=== PATIENT | female | born 1965 | race Caucasian/White ===

== ENCOUNTER 2023-12-21 01:15 | Emergency (ER) | payer MEDICARE, OTHER, SELFPAY ==
[2023-12-21] VITALS (8 sets, daily range): BP systolic 123–185; BP diastolic 63–103; BMI 44.4
[2023-12-21 01:52] LABS: % Basophils 0.9 % (0-2); % Eosinophils 4.6 % (0-6); % Immature Granulocytes 0.1 % (0-0.5); % Lymphocytes 31.4 % (20.5-51.1); % Monocytes 7.7 % (1.7-9.3); % Neutrophils 55.3 % (42.2-75.2); Absolute Basophils 0.1 10^3/uL (0-0.2); Absolute Eosinophils 0.3 10^3/uL (0-0.7); Absolute Lymphocytes 2.2 10^3/uL (1.2-3.4); Absolute Monocytes 0.5 10^3/uL (0.1-0.6); Absolute Neutrophils 3.9 10^3/uL (1.4-6.5); Hematocrit 34.6 % (37.0-47.0); Hemoglobin 11.2 g/dL (12.0-16.0); Mean Corp Hgb Conc. 32.4 g/dL (33.0-37.0); Mean Corpuscular Hgb 28.1 pg (27.0-31.0); Mean Corpuscular Volume 86.9 fL (81.0-99.0); Mean Platelet Volume 9.7 fL (7.4-10.4); Nucleated Red Blood Cells % 0 %; Platelet Count 360 10^3/uL (130-400); Red Blood Cell Count 3.98 10^6/uL (4.20-5.40); Red Cell Dist. Width 13.8 % (11.5-14.5)
[2023-12-21 02:20] LABS: ALT (SGPT) 16 U/L (0-35); AST (SGOT) 27 U/L (14-36); Albumin 4.3 g/dl (3.5-5.0); Alkaline Phosphatase 120 U/L (38-126); Blood Urea Nitrogen 13 mg/dl (7-17); Calcium 9.8 mg/dl (8.4-10.2); Carbon Dioxide 26 mmol/L (22-30); Chloride 102 mmol/L (98-107); Glucose 102 mg/dl (70-99); NT-proBNP 130 pg/ml; Potassium 3.8 mmol/L (3.5-5.1); Sodium 139 mmol/L (135-145); Total Bilirubin 0.3 mg/dl (0.2-1.3); Total Protein 7.6 g/dl (6.3-8.2); Troponin I < 0.012 ng/ml; eGFR > 60.00
--- NOTE | 2023-12-21 06:31 | ED.GENMED ---
History of Present Illness
General
Chief Complaint: Breathing Problem
Source: patient
Exam Limitations: none
Time Seen by Provider: 12/21/23 06:31
Travel History
Have you had any contact with someone who has COVID-19?: No
Do you have any symptoms of coronavirus? Fever > 100 degrees, chills, cough, shortness of breath, sore throat, loss of taste or smell, muscle aches, or headache?: No
History of Present Illness
History of Present Illness:
58-year-old female complaining of shortness of breath. Has anxiety. The last 2 nights she has had difficulty sleeping secondary to being upset. Last night she became more upset than short of breath with some tingling in her left arm. She has had
a stable weight. No chest pain no pleuritic pain no fever
Past History
Past History
ED Past Medical History: CHF, HTN, Hypercholesterolemia, Hypothyroidism, Psychiatric (Bipolar disorder) and Other (Obesity, chronic dental caries, facial celllulitis, Gait Disorder, Hernia,); Negative Asthma or NIDDM
ED Past Surgical History: Cholecystectomy, (X 2), Gynecological (Oophorectomy with tube right sided) and Other (Gastric bypass)
Social History
Tobacco: Non-smoker
Alcohol: None
Personal:
Living: with family (Dad)
Employment: Not employed
Review of Systems
Review of Systems
All Other Systems: Not applicable
Constitutional: Denies fever
Respiratory: Denies cough
Cardiac: Denies chest pain or syncope
Phy Exam
Physical Exam
Physical Exam:
GENERAL: Alert and oriented in no apparent distress
EYE: Orbits normal.
NECK: Supple, no thyroid palpable
ENT: Pharynx without erythema
CARDIAC: Regular rate and rhythm without any obvious murmurs.
LUNGS: Clear breath sounds,normal
ABDOMEN: Soft, without focal tenderness or distention. Elevated BMI
NEUROLOGICAL: Alert and oriented , grossly non-focal
SKIN: Warm and dry, no rash or lesion, no discoloration, skin intact.
MUSCULOSKELETAL: Minimal bilateral lower extremity pitting edema left greater than right
PSYCH: Normal and appropriate interaction.
Scores
Heart Failure Risk
Heart Failure Risk Score: Not Applicable
Course
Orders/Labs/Results
Orders:
Orders
12/21/23 01:36
Electrocardiogram (*1) Urgent
Reason for Study: Chest Pain
EKG- Treatment ONCE
12/21/23 01:45
BNP [NT-proBNP] Urgent
Complete Blood Count/With Diff Urgent
Comprehensive Metabolic Panel Urgent
Troponin I Urgent
12/21/23 06:39
CXR2 [CR Chest - 2 Views ] Urgent
Comment:
Reason For Exam: Short of breath
12/21/23 06:42
EKG- Treatment ONCE
12/21/23 08:23
D-Dimer Urgent
Troponin I Urgent
12/21/23 09:15
EKG [Electrocardiogram (*1)] Urgent
Reason for Study: Other
Other Reason for Exam: repeat
12/21/23 09:17
EKG- Treatment ONCE
12/21/23 09:41
Oxycodone [Roxicodone] 15 mg PO NOW STA
Abnormal Lab Results
12/21/23 12/21/23
01:45 08:23
RBC 3.98 L 10^6/uL
(4.20-5.40)
Hgb 11.2 L g/dL
(12.0-16.0)
Hct 34.6 L %
(37.0-47.0)
MCHC 32.4 L g/dL
(33.0-37.0)
D-Dimer 0.61 H ug/mlFEU
(0.00-0.50)
Glucose 102 H mg/dl
(70-99)
12/21/23 01:45
12/21/23 01:45
Vital Signs
Initial and Last Documented VS:
Initial Vital Signs
Temp Pulse Resp BP Pulse Ox
98.4 F 82 16 185/103 100
12/21/23 01:34 12/21/23 01:34 12/21/23 01:34 12/21/23 01:34 12/21/23 01:34
Last Documented Vital Signs
Temp Pulse Resp BP Pulse Ox
98.4 F 77 32 129/63 99
12/21/23 01:34 12/21/23 09:45 12/21/23 09:45 12/21/23 09:30 12/21/23 09:30
MDM/Problems Addressed
Differential Diagnosis Includes:
Shortness of breath essentially or mostly resolved. Highly doubt primary cardiac issue. Troponin is normal EKG is normal. Lungs are clear. proBNP is normal. Weight is stable. Highly doubt CHF. Unlikely to be pulmonary emboli but needs to be
considered. Low clinical suspicion. D-dimer pending.
*Pulse Oximetry
Patient hypoxic: no
*EKG
Interpreted by ED Provider?: Yes
Interpretation: normal
Comparison EKG: no changes
Heart Rate: 81
Rate: normal
Rhythm: sinus
[place]: normal axis
Interval: normal interval
QRS Pattern: normal QRS
Ischemia: no ischemia
*Critical Care Note
Total Time (30-74mins, 75-104mins- exclusive of procedures): Not Applicable
Data Reviewed
Review of Other/Old Records Reveals: Labs, Records, Radiology Studies and Testing
Update Note
Update Note:
Repeat EKG stable. Normal sinus rhythm no acute changes. Repeat troponin stable. No serious explanation for patient's transient shortness of breath. Feels well now. D-dimer age-adjusted top normal. Very low suspicion for pulmonary emboli.
Stable for discharge to follow-up
ED Attending Note
-
Portions of this chart may have been created with voice recognition software.� Occasional wrong word or��sound alike� substitutions may have occurred due to the inherent limitations of voice recognition software.
Discharge Plan
Departure
Patient Disposition: Home (Routine Discharge)
Date of Disposition: 12/21/23
Time of Disposition: 09:39
Patient with high blood pressure during this ER visit?: Yes
Discharge Problem:
Transient dyspnea
Instructions: Shortness of Breath (Dyspnea) (DC), BLOOD PRESSURE
Prescriptions:
No Action
citalopram 20 MG tablet
40 mg PO DAILY
lamotrigine 100 MG tablet
200 mg PO HS
cyclobenzaprine 10 MG tablet
10 mg PO BIDPRN PRN (Reason: muscle spasm)
levothyroxine 100 MCG tablet
100 mcg PO FR@0700
lithium carbonate 300 MG capsule
300 mg PO BID
bupropion HCl 300 MG tablet extended release 24 hr
300 mg PO DAILY
valsartan [Diovan] 160 MG capsule
160 mg PO DAILY
cyanocobalamin (vitamin B-12) 1,000 MCG tablet
1,000 mcg PO DAILY
oxycodone 15 MG tablet
15 mg PO Q4HPRN PRN (Reason: breakthrough pain)
Patient Comments:
12/09/2021: last filled 11/29/21, 120 tabs for 24 days from [id number]
lorazepam 0.5 MG tablet
0.5 mg PO DAILYPRN PRN (Reason: anxiety)
Patient Comments:
12/09/2021: last filled 11/16/21, 30 tabs for 30 days from [id number]
morphine 15 MG tablet extended release
15 mg PO Q8H
Patient Comments:
12/09/2021: last filled 12/05/21, 90 tabs for 30 days from [id number]
albuterol sulfate 1 PUFF HFA aerosol inhaler
2 puff inhalation R Q4HPRN PRN (Reason: sob/wheezing)
sennosides [senna] 1 TABLET tablet
2 tab PO BID 0RF
polyethylene glycol 3350 17 GRAMS powder in packet
17 grams PO DAILY 0RF
docusate sodium 100 MG capsule
100 mg PO BID 0RF
levothyroxine [Synthroid] 88 MCG tablet
88 mcg PO DAILY Qty: 30 0RF
Rx Instructions:
daily except for Fridays
furosemide 40 MG tablet
40 mg PO DAILY Qty: 30 0RF
albuterol sulfate 2.5 mg/0.5 mL solution for nebulization
5 mg inhalation Q6H PRN (Reason: shortness of breath or wheezing) Qty: 30 0RF
prednisone 20 mg tablet
40 mg PO DAILY Qty: 8 0RF
Referrals:
Paul Melgar DO [Family Provider] - Follow up in 2-3 days
Interventions
Interventions:
*Risk Screen - Suicide Last Done: 12/21/23 01:34
*General Assessment Last Done: 12/21/23 06:32
*Neglect/Abuse Screening Last Done: 12/21/23 01:34
ED- Fall Risk Assessment Last Done: 12/21/23 06:32
*ED COVID-19 Vaccine History Last Done: 12/21/23 01:34
*Nursing Disposition Last Done: 12/21/23 10:27
ED- Cardiac Assessment Last Done: 12/21/23 06:32
ED- Pulmonary Assessment Last Done: 12/21/23 06:32
Discharge Date and Time
Discharge Date/Time: 12/21/23 10:28
Print Language: JAPANESE
[2023-12-21 08:51] LABS: D-Dimer 0.61 ug/mlFEU (0.00-0.50)
[2023-12-21 09:07] LABS: Troponin I < 0.012 ng/ml
[2023-12-21] MEDS: ROXICODONE 15 MG PO (10:03)
== END 2023-12-21 10:28 | disposition home or self-care (01) ==
LOC: EMR 01:15
PROVIDERS: Emergency Medicine; EMERGENCY PHYSICIAN Emergency Medicine; FAMILY PHYSICIAN Internal Medicine
DX: R06.00 Dyspnea, unspecified (principal); R06.02 Shortness of breath; R20.2 Paresthesia of skin; I10 Essential (primary) hypertension
CPT/HCPCS: 99285; 71046; 80053; 83880; 84484; 85025; 85379; 93005

== ENCOUNTER → 2024-05-13 08:08 | Outpatient (REF) | payer MEDICARE, OTHER, SELFPAY ==
[2024-05-13 09:33] LABS: Hematocrit 34.8 % (37.0-47.0); Hemoglobin 11.1 g/dL (12.0-16.0); Mean Corp Hgb Conc. 31.9 g/dL (33.0-37.0); Mean Corpuscular Hgb 27.8 pg (27.0-31.0); Mean Platelet Volume 9.7 fL (7.4-10.4); Platelet Count 354 10^3/uL (130-400); Red Cell Dist. Width 14.1 % (11.5-14.5); White Blood Cell Count 5.8 10^3/uL (4.8-10.8)
[2024-05-13 09:57] LABS: ALT (SGPT) 21 U/L (0-35); AST (SGOT) 39 U/L (14-36); Albumin 4.2 g/dl (3.5-5.0); Alkaline Phosphatase 113 U/L (38-126); Blood Urea Nitrogen 10 mg/dl (7-17); Calcium 9.8 mg/dl (8.4-10.2); Carbon Dioxide 25 mmol/L (22-30); Chloride 105 mmol/L (98-107); Direct Bilirubin 0.2 mg/dl (0.0-0.4); Glucose 103 mg/dl (70-99); HDL Cholesterol 55 mg/dl; LDL Cholesterol, Calculated 84 mg/dl; Lithium 0.3 mmol/L (0.6-1.2); Potassium 4.4 mmol/L (3.5-5.1); Sodium 144 mmol/L (135-145); Total Bilirubin 0.4 mg/dl (0.2-1.3); Total Cholesterol 163 mg/dl (50-199); Total Protein 7.2 g/dl (6.3-8.2); Triglyceride 122 mg/dl (10-149); Very Low Density Lipoprotein 24 mg/dl (0-30); eGFR > 60.00
[2024-05-13 10:23] LABS: TSH 8.56 uIU/ml (0.47-4.68)
== END ==
LOC: REG 08:08
PROVIDERS: ATTENDING PHYSICIAN Nurse Practitioner Adult Health; FAMILY PHYSICIAN Internal Medicine
DX: F31.4 Bipolar disorder, current episode depressed, severe, without psychotic features (principal); Z79.899 Other long term (current) drug therapy
CPT/HCPCS: 36415; 80053; 80061; 80178; 82248; 84443; 85027

== ENCOUNTER 2024-05-30 11:57 | Emergency (ER) | payer MEDICARE, OTHER, SELFPAY ==
[2024-05-30 11:58] VITALS: BP 125/59
--- NOTE | 2024-05-30 12:27 | ED.GENMED ---
History of Present Illness
General
Chief Complaint: Cough
Source: patient
Exam Limitations: none
Time Seen by Provider: 05/30/24 12:16
Nursing documentation reviewed up to this point in time: agreed with
History of Present Illness
History of Present Illness:
59-year-old female with past medical history of CHF, hypertension, hypothyroidism presents emergency department today with concerns of cough and shortness of breath. Patient states that this started yesterday. Patient states that this all started
with a cough and she had a hard time catching her breath as well. She notes that shortness of breath is worse with exertion. Patient states that she had hard time sleeping last night because of the cough. Patient denies any chest pain. Patient
notes a sore throat as well. Patient follows with Dr. Gamble for cardiology. Patient denies any swelling in her legs or recent weight gain. Patient takes 20 mg of Lasix daily. Patient denies any sick contacts feet. Patient denies any recent
long distance travel, any recent surgeries or immobilization. Of note, patient started antibiotic recently Keflex for infection of her skin on her abdomen. Patient denies any fevers or chills, any constipation or diarrhea. Patient denies any
abdominal pain.
Past History
Past History
ED Past Medical History: CHF, HTN, Hypercholesterolemia, Hypothyroidism, Psychiatric (Bipolar disorder) and Other (Obesity, chronic dental caries, facial celllulitis, Gait Disorder, Hernia,); Negative Asthma or NIDDM
ED Past Surgical History: Cholecystectomy, (X 2), Gynecological (Oophorectomy with tube right sided) and Other (Gastric bypass)
Social History
Tobacco: Non-smoker
Alcohol: None
Personal:
Living: with family (Dad)
Employment: Not employed
Review of Systems
Review of Systems
All Other Systems: ROS reviewed and negative except as documented in HPI and ROS
Phy Exam
Physical Exam
Physical Exam:
General: Patient is well appearing and in no acute distress; non-toxic
Skin: Warm and dry, no rashes or lesions
Head: Normocephalic, atraumatic
Eyes: Sclera non-icteric. EOMs intact.
Cardiac: Regular rate and rhythm, no murmurs
Peripheral Vascular: No lower extremity swelling or edema, no erythema
Pulm: Normal respiratory effort, rhonchi heard in lower lung bases bilaterally
Neuro: CN II-XII intact, no focal neurologic deficits.
Psychiatric: Appropriate mood and affect.
Course
Orders/Labs/Results
Orders:
Orders
05/30/24 12:05
COVID-19 Antigen Urgent
Source: Nasal Swab
Influenza A+B Rapid Molecular Urgent
PATI Source: Nasal Swab
Specimen Description:
05/30/24 12:37
IV Insert/Care/Rem.- Treatment PRN
Ipratropium/Albuterol Sulfate [Duoneb] 3 ml INH R NOW STA
Ondansetron Injectable [Zofran] 4 mg IV NOW STA
05/30/24 12:42
CR Chest - 2 Views Urgent
Comment:
Reason For Exam: sob
05/30/24 12:51
Complete Blood Count/With Diff Urgent
Comprehensive Metabolic Panel Urgent
NT-proBNP Urgent
Troponin I Urgent
Comment: ADD ON
05/30/24 13:52
Ketorolac [Toradol] 15 mg .ROUTE .STK-MED ONE
05/30/24 13:55
Ketorolac [Toradol] 15 mg IV NOW STA
05/30/24 13:59
Ipratropium/Albuterol Sulfate [Duoneb] 3 ml INH R NOW STA
05/30/24 14:01
D-Dimer Urgent
05/30/24 14:08
Add On- LAB Urgent
Tests Added?: troponin
05/30/24 14:09
Electrocardiogram (*1) Urgent
Reason for Study: Shortness of Breath
EKG- Treatment ONCE
Abnormal Lab Results
05/30/24
12:51
RBC 3.57 L 10^6/uL
(4.20-5.40)
Hgb 10.0 L g/dL
(12.0-16.0)
Hct 31.2 L %
(37.0-47.0)
MCHC 32.1 L g/dL
(33.0-37.0)
Monocytes % 9.8 H %
(1.7-9.3)
BUN 18 H mg/dl
(7-17)
Glucose 111 H mg/dl
(70-99)
AST 38 H U/L
(14-36)
05/30/24 12:51
05/30/24 12:51
Vital Signs
Initial and Last Documented VS:
Initial Vital Signs
Temp Pulse Resp BP Pulse Ox
97.9 F 103 20 125/59 95
05/30/24 11:58 05/30/24 11:58 05/30/24 11:58 05/30/24 11:58 05/30/24 11:58
Last Documented Vital Signs
Temp Pulse Resp BP Pulse Ox
97.9 F 91 19 99/62 98
05/30/24 11:58 05/30/24 16:10 05/30/24 16:10 05/30/24 16:00 05/30/24 16:10
MDM/Problems Addressed
Differential Diagnosis Includes:
Differentials include viral syndrome, COVID-19, pneumonia, acute bronchitis, heart failure exacerbation, PE
MDM/Problems Addressed:
59-year-old female with past medical history of CHF presents emergency department today with concerns of coughing and shortness of breath with exertion. Patient also started to develop some chest pain on the 1 side during the ER visit today.
Patient states that she has had this problem in the past and was attributed to bronchitis. Patient states that she has also had heart failure in the past and states that her shortness breath exertion similar to this time. On exam, patient is
well-appearing does have persistent coughing but no obvious signs of respiratory distress. She is not hypoxic. She is not febrile. I do hear some rhonchi in the lower bases bilaterally but no wheezing. I did obtain chest x-ray which did not show
any evidence of pneumonia. Her CBC and CMP are unremarkable. BNP is not elevated. Doubt heart failure exacerbation. Troponin and EKG normal, doubt ACS, suspect pain from persistent coughing episodes. Pain did improve with Toradol. Shortness
breath improved with DuoNeb treatment. Suspect viral bronchitis. DuoNeb treatment sent to the pharmacy as well as a short prednisone burst. Advised patient follow-up with PCP. Patient stable for discharge.
Chronic conditions affecting care:
CHF, HTN, anxiety disorder
*Radiology
Radiology exam reviewed: preliminary read by ED provider (no acute cardiopulmonary abnormality )
*Pulse Oximetry
Patient hypoxic: no
*EKG
Interpreted by ED Provider?: Yes
EKG Intrepretation Date: 05/30/24
Interpretation: normal
Heart Rate: 90
Rate: normal
Rhythm: sinus
[place]: normal axis
Ischemia: no ischemia
*Critical Care Note
Total Time (30-74mins, 75-104mins- exclusive of procedures): Not Applicable
Data Reviewed
Review of Other/Old Records Reveals: Records (Reviewed ER physician documentation from 12/21/2023, and 07/20/2022 where patient was seen for similar symptom)
Source: patient and records
Prescriptions/Medications Considered But Not Given:
Considered antibiotics however no clear pneumonia on chest x-ray, patient has had symptoms only in the past 24-hour
Further Testing Considered But Not Given:
Considered CT of the chest to evaluate for PE however patient is not tachycardic, not hypoxic, her symptoms have improved, her d dimer is in normal range
Patient Management
Escalation/DeEscalation of care consider admission/obs:
case reviewed with my attending
Update Note
Update Note:
14:00-- I was called into the room because patient feels like her shortness of breath has increased, she has mild right sided chest discomfort with inspiration. She repeatedly states, 'I cannot breath'.
ED Attending Note
-
Portions of this chart may have been created with voice recognition software.� Occasional wrong word or��sound alike� substitutions may have occurred due to the inherent limitations of voice recognition software.
Discharge Plan
Departure
Patient Disposition: Home (Routine Discharge)
Date of Disposition: 05/30/24
Time of Disposition: 16:04
Patient with high blood pressure during this ER visit?: Yes
Condition: Good
Discharge Problem:
Acute bronchitis
Instructions: Acute Bronchitis, Adult (DC), How to Use a Nebulizer, Adult, BLOOD PRESSURE
Prescriptions:
New
albuterol sulfate 2.5 mg/0.5 mL solution for nebulization
5 mg inhalation Q6H Qty: 30 0RF
prednisone 20 mg tablet
40 mg PO DAILY 4 Days Qty: 8 0RF
No Action
citalopram 20 MG tablet
40 mg PO DAILY
lamotrigine 100 MG tablet
200 mg PO HS
cyclobenzaprine 10 MG tablet
10 mg PO BIDPRN PRN (Reason: muscle spasm)
levothyroxine 100 MCG tablet
100 mcg PO FR@0700
lithium carbonate 300 MG capsule
300 mg PO BID
bupropion HCl 300 MG tablet extended release 24 hr
300 mg PO DAILY
valsartan [Diovan] 160 MG capsule
160 mg PO DAILY
cyanocobalamin (vitamin B-12) 1,000 MCG tablet
1,000 mcg PO DAILY
oxycodone 15 MG tablet
15 mg PO Q4HPRN PRN (Reason: breakthrough pain)
Patient Comments:
12/09/2021: last filled 11/29/21, 120 tabs for 24 days from [id number]
lorazepam 0.5 MG tablet
0.5 mg PO DAILYPRN PRN (Reason: anxiety)
Patient Comments:
12/09/2021: last filled 11/16/21, 30 tabs for 30 days from [id number]
morphine 15 MG tablet extended release
15 mg PO Q8H
Patient Comments:
12/09/2021: last filled 12/05/21, 90 tabs for 30 days from [id number]
albuterol sulfate 1 PUFF HFA aerosol inhaler
2 puff inhalation R Q4HPRN PRN (Reason: sob/wheezing)
sennosides [senna] 1 TABLET tablet
2 tab PO BID 0RF
polyethylene glycol 3350 17 GRAMS powder in packet
17 grams PO DAILY 0RF
docusate sodium 100 MG capsule
100 mg PO BID 0RF
levothyroxine [Synthroid] 88 MCG tablet
88 mcg PO DAILY Qty: 30 0RF
Rx Instructions:
daily except for Fridays
furosemide 40 MG tablet
40 mg PO DAILY Qty: 30 0RF
albuterol sulfate 2.5 mg/0.5 mL solution for nebulization
5 mg inhalation Q6H PRN (Reason: shortness of breath or wheezing) Qty: 30 0RF
prednisone 20 mg tablet
40 mg PO DAILY Qty: 8 0RF
Referrals:
Paul Melgar DO [Family Provider] -
Activity Restrictions/Additional Instructions:
Albuterol nebs have been sent to your pharmacy. You can use one treatment every 6 hours as needed for shortness of breath/coughing.
Please return emergency department should you experience acute worsening of your symptoms, lightheadedness, dizziness, fevers or chills, or any signs or symptoms concerning to you.
Please follow-up with your primary care provider.
Interventions
Interventions:
*Risk Screen - Suicide Last Done: 05/30/24 11:58
*General Assessment Last Done: 05/30/24 11:58
*Neglect/Abuse Screening Last Done: 05/30/24 11:58
ED- Fall Risk Assessment Last Done: 05/30/24 16:23
*ED COVID-19 Vaccine History Last Done: 05/30/24 12:56
*Nursing Disposition Last Done: 05/30/24 16:23
ED- Pulmonary Assessment Last Done: 05/30/24 12:49
Discharge Date and Time
Discharge Date/Time: 05/30/24 16:25
Print Language: POLISH
[2024-05-30 12:30] LABS: COVID-19 Antigen Negative (Negative)
[2024-05-30 13:05] LABS: % Basophils 0.8 % (0-2); % Eosinophils 2.7 % (0-6); % Immature Granulocytes 0.2 % (0-0.5); % Lymphocytes 39.1 % (20.5-51.1); % Monocytes 9.8 % (1.7-9.3); % Neutrophils 47.4 % (42.2-75.2); Absolute Eosinophils 0.1 10^3/uL (0-0.7); Absolute Lymphocytes 1.9 10^3/uL (1.2-3.4); Absolute Monocytes 0.5 10^3/uL (0.1-0.6); Absolute Neutrophils 2.3 10^3/uL (1.4-6.5); Hematocrit 31.2 % (37.0-47.0); Mean Corp Hgb Conc. 32.1 g/dL (33.0-37.0); Mean Corpuscular Volume 87.4 fL (81.0-99.0); Mean Platelet Volume 9.6 fL (7.4-10.4); Nucleated Red Blood Cells % 0 %; Platelet Count 274 10^3/uL (130-400); Red Blood Cell Count 3.57 10^6/uL (4.20-5.40); Red Cell Dist. Width 13.9 % (11.5-14.5); White Blood Cell Count 4.9 10^3/uL (4.8-10.8)
[2024-05-30 13:17] LABS: ALT (SGPT) 30 U/L (0-35); AST (SGOT) 38 U/L (14-36); Blood Urea Nitrogen 18 mg/dl (7-17); Calcium 9.2 mg/dl (8.4-10.2); Carbon Dioxide 23 mmol/L (22-30); Chloride 102 mmol/L (98-107); Glucose 111 mg/dl (70-99); Potassium 3.7 mmol/L (3.5-5.1); Sodium 139 mmol/L (135-145); Total Bilirubin 0.3 mg/dl (0.2-1.3); Total Protein 6.9 g/dl (6.3-8.2); eGFR > 60.00
[2024-05-30 13:25] LABS: NT-proBNP 142 pg/ml
[2024-05-30 13:29] LABS: Alkaline Phosphatase 119 U/L (38-126)
[2024-05-30] MEDS: DUONEB 3 ML INH ×2 (13:35→14:07)
[2024-05-30] MEDS: ZOFRAN 4 MG IV (13:35)
[2024-05-30] MEDS: TORADOL 15 MG IV (13:55)
[2024-05-30 15:11] VITALS: BP 113/58
[2024-05-30 15:20] VITALS: BP 108/62
[2024-05-30 15:30] VITALS: BP 108/47
[2024-05-30 15:40] VITALS: BP 102/60
[2024-05-30 15:52] LABS: Troponin I < 0.012 ng/ml
[2024-05-30 16:00] VITALS: BP 99/62
== END 2024-05-30 16:25 | disposition home or self-care (01) ==
LOC: EMR 11:57
PROVIDERS: Emergency Medicine; Physician Assistant; EMERGENCY PHYSICIAN Student in an Organized Health Care Education/Training Program; FAMILY PHYSICIAN Internal Medicine
DX: J20.9 Acute bronchitis, unspecified (principal); I11.0 Hypertensive heart disease with heart failure; I50.9 Heart failure, unspecified; E03.9 Hypothyroidism, unspecified; F31.9 Bipolar disorder, unspecified; E66.9 Obesity, unspecified; E78.00 Pure hypercholesterolemia, unspecified; F41.9 Anxiety disorder, unspecified; Z79.899 Other long term (current) drug therapy; Z90.49 Acquired absence of other specified parts of digestive tract; Z90.721 Acquired absence of ovaries, unilateral; Z98.84 Bariatric surgery status
CPT/HCPCS: 99284; 94640; 96374; 96375; 71046; 80053; 83880; 84484; 85025; 85379; 87502; 87811; 93005

== ENCOUNTER 2024-05-30 21:21 | Emergency (ER) | payer MEDICARE, OTHER, SELFPAY ==
[2024-05-30 21:25] VITALS: BP 106/75
[2024-05-30 21:52] VITALS: BP 148/78
[2024-05-30 22:00] VITALS: BP 145/74
--- NOTE | 2024-05-30 22:09 | ED.GENMED ---
History of Present Illness
General
Chief Complaint: Cough
Source: patient and records
Exam Limitations: none
Time Seen by Provider: 05/30/24 22:02
History of Present Illness
History of Present Illness:
59yoF with a history of CHF, hypertension, hypothyroidism, and bipolar disorder presenting for evaluation of shortness of breath. Patient was seen in the ED earlier today for the same. She underwent a workup including labs, EKG, and chest x-ray
which were unremarkable. Patient was diagnosed with acute bronchitis. She was discharged with prescriptions for prednisone and albuterol. Patient was able to package pick up the prednisone but there was some sort of issue at the pharmacy regarding her
albuterol prescriptions. Symptoms were controlled at time of discharge but then recurred prompting her to come back to the ED. Patient currently requesting albuterol. She has no new complaints at this time.
Past History
Past History
ED Past Medical History: CHF, HTN, Hypercholesterolemia, Hypothyroidism, Psychiatric (Bipolar disorder) and Other (Obesity, chronic dental caries, facial celllulitis, Gait Disorder, Hernia,); Negative Asthma or NIDDM
ED Past Surgical History: Cholecystectomy, (X 2), Gynecological (Oophorectomy with tube right sided) and Other (Gastric bypass)
Social History
Tobacco: Non-smoker
Alcohol: None
Personal:
Living: with family (Dad)
Employment: Not employed
Phy Exam
General Physical Exam
General Presentation: well appearing and no apparent distress
General Skin: warm and dry
General Habitus: normal
General Mental: alert
ENT Exam
ENT Exam: normocephalic
Cardiovascular Exam
Cardiovascular Exam: regular rate/rhythm
Pulmonary Exam
Pulmonary Exam: no respiratory distress and other (Hoarse cough noted with rhonchi. No respiratory distress. Patient speaking in full sentences without difficulty. )
Skin Exam
Skin Exam: normal color and warm/dry
Psychiatric Exam
Psychiatric Exam: normal mood/affect
Course
Orders/Labs/Results
Orders:
Orders
05/30/24 22:08
Albuterol Nebs [Ventolin Nebules] 5 mg INH R NOW STA
Albuterol [ProAIR HFA INHALER] 2 puff INH R NOW STA
Ipratropium Nebs [Atrovent Nebules] 0.5 mg INH R NOW STA
05/30/24 22:25
Albuterol Sulfate [Ventolin Nebules] 2.5 mg .ROUTE .STK-MED ONE
Vital Signs
Initial and Last Documented VS:
Initial Vital Signs
Temp Pulse Resp BP Pulse Ox
99.3 F 97 16 106/75 97
05/30/24 21:25 05/30/24 21:25 05/30/24 21:25 05/30/24 21:25 05/30/24 21:25
Last Documented Vital Signs
Temp Pulse Resp BP Pulse Ox
98.9 F 78 24 106/55 96
05/30/24 22:31 05/30/24 22:31 05/30/24 22:31 05/30/24 23:08 05/30/24 23:08
MDM/Problems Addressed
Differential Diagnosis Includes:
59yoF here with SOB. Seen in the ED earlier today and diagnosed with bronchitis. Symptoms recurred this evening and she was unable to package pick up albuterol from the pharmacy. She is afebrile and hemodynamically stable. Oxygen saturation 97% on room air.
She is non-toxic appearing. Hoarse cough and rhonchi noted on exam. No respiratory distress present. Differential diagnosis includes but is not limited to: bronchospasm, bronchitis, asthma exacerbation, viral illness
Initial ED plan: Labs, EKG, and CXR from earlier today reviewed. No indication for further diagnostics at this time. Will give DuoNeb and reassess.
*Critical Care Note
Total Time (30-74mins, 75-104mins- exclusive of procedures): Not Applicable
Update Note
Update Note:
Patient feeling much better on reassessment. Lungs now CTA. No episodes of hypoxia during ED stay. She is stable for discharge. Prescription for albuterol inhaler and neb solution sent to 27/[facility] pharmacy. She was advised to follow-up with her PCP. ED
return precautions discussed. She was discharged in stable condition.
ED Attending Note
-
Portions of this chart may have been created with voice recognition software.� Occasional wrong word or��sound alike� substitutions may have occurred due to the inherent limitations of voice recognition software.
Discharge Plan
Departure
Patient Disposition: Home (Routine Discharge)
Date of Disposition: 05/30/24
Time of Disposition: 23:36
Patient with high blood pressure during this ER visit?: Yes
Discharge Problem:
Acute bronchitis
Instructions: Acute Bronchitis, Adult (DC)
Prescriptions:
New
albuterol sulfate 90 mcg/actuation HFA aerosol inhaler
2 puff inhalation Q6H PRN (Reason: shortness of breath or wheezing) Qty: 8.5 0RF
albuterol sulfate 2.5 mg/0.5 mL solution for nebulization
5 mg inhalation Q6H PRN (Reason: shortness of breath or wheezing) Qty: 30 0RF
No Action
citalopram 20 MG tablet
40 mg PO DAILY
lamotrigine 100 MG tablet
200 mg PO HS
cyclobenzaprine 10 MG tablet
10 mg PO BIDPRN PRN (Reason: muscle spasm)
levothyroxine 100 MCG tablet
100 mcg PO FR@0700
lithium carbonate 300 MG capsule
300 mg PO BID
bupropion HCl 300 MG tablet extended release 24 hr
300 mg PO DAILY
valsartan [Diovan] 160 MG capsule
160 mg PO DAILY
cyanocobalamin (vitamin B-12) 1,000 MCG tablet
1,000 mcg PO DAILY
oxycodone 15 MG tablet
15 mg PO Q4HPRN PRN (Reason: breakthrough pain)
Patient Comments:
12/09/2021: last filled 11/29/21, 120 tabs for 24 days from [id number]
lorazepam 0.5 MG tablet
0.5 mg PO DAILYPRN PRN (Reason: anxiety)
Patient Comments:
12/09/2021: last filled 11/16/21, 30 tabs for 30 days from [id number]
morphine 15 MG tablet extended release
15 mg PO Q8H
Patient Comments:
12/09/2021: last filled 12/05/21, 90 tabs for 30 days from [id number]
albuterol sulfate 1 PUFF HFA aerosol inhaler
2 puff inhalation R Q4HPRN PRN (Reason: sob/wheezing)
sennosides [senna] 1 TABLET tablet
2 tab PO BID 0RF
polyethylene glycol 3350 17 GRAMS powder in packet
17 grams PO DAILY 0RF
docusate sodium 100 MG capsule
100 mg PO BID 0RF
levothyroxine [Synthroid] 88 MCG tablet
88 mcg PO DAILY Qty: 30 0RF
Rx Instructions:
daily except for Fridays
furosemide 40 MG tablet
40 mg PO DAILY Qty: 30 0RF
albuterol sulfate 2.5 mg/0.5 mL solution for nebulization
5 mg inhalation Q6H PRN (Reason: shortness of breath or wheezing) Qty: 30 0RF
prednisone 20 mg tablet
40 mg PO DAILY Qty: 8 0RF
albuterol sulfate 2.5 mg/0.5 mL solution for nebulization
5 mg inhalation Q6H Qty: 30 0RF
prednisone 20 mg tablet
40 mg PO DAILY 4 Days Qty: 8 0RF
Referrals:
Paul Melgar DO [Family Provider] -
Activity Restrictions/Additional Instructions:
Continue taking prednisone. Use inhaler and nebulizer as needed for wheezing.
Please follow-up with your family doctor in 2-3 days. Return to the ER with any worsening symptoms.
Interventions
Interventions:
*Risk Screen - Suicide Last Done: 05/30/24 21:24
*General Assessment Last Done: 05/30/24 22:35
*Neglect/Abuse Screening Last Done: 05/30/24 22:35
ED- Fall Risk Assessment Last Done: 05/30/24 22:35
*ED COVID-19 Vaccine History Last Done: 05/30/24 22:35
ED- Pulmonary Assessment Last Done: 05/30/24 22:35
Discharge Date and Time
Print Language: SYRIAC
[2024-05-30] MEDS: ATROVENT NEBULES 0.5 MG INH (22:26)
[2024-05-30] MEDS: VENTOLIN NEBULES 5 MG INH (22:27)
[2024-05-30 22:30] VITALS: BMI 45.0
[2024-05-30 22:31] VITALS: BP 145/74
[2024-05-30 23:08] VITALS: BP 106/55
[2024-05-31] MEDS: ProAIR HFA INHALER 2 PUFF INH (00:46)
== END 2024-05-31 00:52 | disposition home or self-care (01) ==
LOC: EMR 21:21
PROVIDERS: EMERGENCY PHYSICIAN Emergency Medicine; FAMILY PHYSICIAN Internal Medicine
DX: J20.9 Acute bronchitis, unspecified (principal); I11.0 Hypertensive heart disease with heart failure; I50.9 Heart failure, unspecified; E03.9 Hypothyroidism, unspecified; F31.9 Bipolar disorder, unspecified; E66.9 Obesity, unspecified; E78.00 Pure hypercholesterolemia, unspecified; Z90.49 Acquired absence of other specified parts of digestive tract; Z90.721 Acquired absence of ovaries, unilateral; Z98.84 Bariatric surgery status
CPT/HCPCS: 99284; 94640

== ENCOUNTER → 2024-06-05 14:20 | Outpatient (REF) | payer MEDICARE, OTHER, SELFPAY | LOC: HWWDC 14:20 | PROVIDERS: ATTENDING PHYSICIAN Internal Medicine; REFERRING PHYSICIAN Obstetrics & Gynecology | DX: Z12.31 Encounter for screening mammogram for malignant neoplasm of breast (principal) | CPT/HCPCS: 77063; 77067 ==

== ENCOUNTER → 2025-06-18 13:31 | Outpatient (REF) | payer MEDICARE, OTHER, SELFPAY | LOC: HWWDC 13:31 | PROVIDERS: ATTENDING PHYSICIAN Internal Medicine; REFERRING PHYSICIAN Obstetrics & Gynecology | DX: Z12.31 Encounter for screening mammogram for malignant neoplasm of breast (principal) | CPT/HCPCS: 77063; 77067 ==

== ENCOUNTER → 2025-07-01 07:41 | Outpatient (REF) | payer MEDICARE, OTHER, SELFPAY ==
[2025-07-01 08:52] LABS: Hematocrit 35.0 % (37.0-47.0); Hemoglobin 10.3 g/dL (12.0-16.0); Mean Corp Hgb Conc. 29.4 g/dL (33.0-37.0); Mean Corpuscular Volume 87.9 fL (81.0-99.0); Nucleated Red Blood Cells % 0 %; Platelet Count 317 10^3/uL (130-400); Red Cell Dist. Width 15.5 % (11.5-14.5)
[2025-07-01 09:25] LABS: ALT (SGPT) 20 U/L (0-35); AST (SGOT) 33 U/L (14-36); Albumin 3.8 g/dl (3.5-5.0); Alkaline Phosphatase 128 U/L (38-126); Blood Urea Nitrogen 13 mg/dl (7-17); Calcium 8.9 mg/dl (8.4-10.2); Carbon Dioxide 30 mmol/L (22-30); Chloride 101 mmol/L (98-107); Glucose 80 mg/dl (70-99); HDL Cholesterol 35 mg/dl; LDL Cholesterol, Calculated 53 mg/dl; Potassium 4.3 mmol/L (3.5-5.1); Sodium 136 mmol/L (135-145); Total Protein 7.4 g/dl (6.3-8.2); Very Low Density Lipoprotein 18 mg/dl (0-30); eGFR > 60.00
[2025-07-01 09:34] LABS: Total Iron Binding Capacity 352 ug/dl (265-497)
[2025-07-01 09:55] LABS: Glycohemoglobin (HgbA1c) 5.4 % (4.0-5.9)
[2025-07-01 10:46] LABS: Vitamin D, 25-OH*** 14.0 ng/mL (30-80)
[2025-07-01 10:59] LABS: TSH 20.40 uIU/ml (0.47-4.68)
[2025-07-01 11:36] LABS: Vitamin B12 397 pg/ml (239-931)
== END ==
LOC: REG 07:41
PROVIDERS: ATTENDING PHYSICIAN Internal Medicine
DX: E78.00 Pure hypercholesterolemia, unspecified (principal); F41.9 Anxiety disorder, unspecified; R79.89 Other specified abnormal findings of blood chemistry; E44.1 Mild protein-calorie malnutrition; Z13.1 Encounter for screening for diabetes mellitus; Z98.84 Bariatric surgery status; D52.0 Dietary folate deficiency anemia
CPT/HCPCS: 36415; 80053; 80061; 82306; 82607; 83036; 83550; 84439; 84443; 85025